=== PATIENT | male | born 1970 | race Two or more races ===

== ENCOUNTER 2016-06-14 19:55 | Emergency (ER) | payer OTHER ==
[~2016-06-14] VITALS: Ht 175.3 cm; Wt 81.6 kg
[2016-06-14 20:05] VITALS: BP_SYST 147
--- NOTE | 2016-06-14 20:05 | NUR ---
Patient to ER bed 06 to gown for evaluation. Side rails up. Report given to ESSIE.
--- NOTE | 2016-06-14 20:10 | NUR ---
Pt presents to ED with c/o R posterior lower back pain 12/22, started since noon, denies taking any pain medication prior to ED arrival. A&Ox4, Pt appearead anxious, diaphoretic, skin intact, ambulatory, denies dizziness, denies SOB or chestpain, denies N/V/D.Will continue to monitor
--- NOTE | 2016-06-14 20:20 | NUR ---
MD Chowdary at bedside examining pt
[2016-06-14] MEDS ORDERED: KETOROLAC TROMETHAMINE 30 MG VIAL IVP ONE (20:30)
[2016-06-14] MEDS ORDERED: HYDROmorphone 1 MG INJ. 1 MG/ML AMPUL IVP ONE (20:30)
[2016-06-14] MEDS ORDERED: NACL 0.9% 1,000 ML IV ONE (20:30)
[2016-06-14] MEDS ORDERED: DIPHENHYDRAMINE INJ 50 MG/ML VIAL IVP ONE (20:30)
[2016-06-14 20:39] LABS: BASOPHILS % (AUTO) 0.4 % (0.0-2.0); EOSINOPHILS # (AUTO) 0.1 K/uL (0.0-0.4); EOSINOPHILS % (AUTO) 1.8 % (0.0-4.0); HEMATOCRIT 42.1 % (36-54); HEMOGLOBIN 14.3 g/dL (14.0-18.0); LYMPHOCYTES # (AUTO) 2.7 K/uL (1.0-5.5); LYMPHOCYTES % (AUTO) 37.6 % (20.5-51.5); MEAN CORPUSCULAR HEMOGLOBIN 29 pg (27-31); MEAN CORPUSCULAR HGB CONC 34 % (32-36); MEAN CORPUSCULAR VOLUME 85 fL (79.0-98.0); MONOCYTES # (AUTO) 0.5 K/uL (0.0-1.0); MONOCYTES % (AUTO) 6.8 % (1.7-9.3); NEUTROPHILS # (AUTO) 3.9 K/uL (1.8-7.7); NEUTROPHILS % (AUTO) 53.4 % (40.0-70.0); PLATELET COUNT (AUTO) 225 K/uL (130-430); RED BLOOD CELL COUNT(AUTO) 4.94 MIL/uL (4.2-6.2); RED CELL DISTRIBUTION WIDTH 13.8 % (9.0-15.0); WHITE BLOOD COUNT (AUTO) 7.2 K/uL (4.8-10.8)
[2016-06-14 20:46] LABS: CALCIUM 8.5 mg/dL (8.4-11.0); CREATININE 1.15 mg/dL (0.55-1.30); POTASSIUM 3.6 mmol/L (3.5-5.1)
[2016-06-14 20:48] LABS: INR 0.9 (0.80-1.20); PROTHROMBIN TIME 10.3 SECS (9.5-12.5)
[2016-06-14 20:54] LABS: ALBUMIN 3.7 g/dL (3.4-4.8); TOTAL BILIRUBIN 0.2 mg/dL (0.0-1.0); TOTAL PROTEIN, SERUM 7.3 g/dL (6.4-8.3)
[2016-06-14 21:03] LABS: BILIRUBIN,URINE NEGATIVE (NEGATIVE); BLOOD, URINE NEGATIVE (NEGATIVE); CLARITY/URINE CLEAR (CLEAR); COLOR,URINE YELLOW (YELLOW); GLUCOSE,URINE NEGATIVE (NEGATIVE); KETONES,URINE NEGATIVE (NEGATIVE); LEUKOCYTE ESTERASE ,URINE NEGATIVE (NEGATIVE); NITRITE, URINE NEGATIVE (NEGATIVE); PROTEIN URINE NEGATIVE (NEGATIVE); UROBILINOGEN,URINE 0.2 (0.2-1.0)
--- NOTE | 2016-06-14 21:03 | NUR ---
pt appeared calm, stated pain is 3/10
--- NOTE | 2016-06-14 22:15 | NUR ---
Needs attended and care provided. Pt in bed appeared resting comfortably
[2016-06-14] MEDS ORDERED: PANTOPRAZOLE SODIUM 40 MG/VIAL (PROTONIX) IVP ONE (22:45)
--- NOTE | 2016-06-14 23:05 | NUR ---
Pt denies distress, Will continue to monitor
--- NOTE | 2016-06-15 | NUR ---
Patient given written and verbal discharge instructions and verbalizes understanding. ER MD Chowdary discussed with patient the results and treatment provided. Given copies of tests performed in ER. Patient in stable condition. ID arm band removed. IV catheter removed intact and dressing applied, no active bleeding. Rx of Jean, motrin given. Patient educated on pain management and to follow up with PMD. Pain Scale 0/10. Opportunity for questions provided and answered.
[2016-06-15 00:01] VITALS: BP_SYST 126
== END 2016-06-15 | disposition home or self-care (01) ==
LOC: SED 19:55
DX: K80.20 Calculus of gallbladder without cholecystitis without obstruction (principal); I25.2 Old myocardial infarction
CPT/HCPCS: 36415; 74176; 80053; 81003; 83690; 85025; 85610; 96361; 96374; 96375; 99285; C9113; J1170; J1200; J1885; J7030

== ENCOUNTER 2016-10-08 01:40 | Emergency (ER) | payer OTHER ==
[~2016-10-08] VITALS: Ht 175.3 cm; Wt 85.3 kg
--- NOTE | 2016-10-08 02:40 | NUR ---
Patient to ER bed 1 to gown for evaluation. Side rails up. Report given to Gibson ROBERT.
--- NOTE | 2016-10-08 02:45 | NUR ---
Patient arrived to ED a/o x 4 with c/o epigastric pain. Patient reports 7/10 epigastric pain radiating to the left side. Reports coming to ED 2 weeks ago. Discharged with gastritis. No relief from pain since then. Reports nausea. Denies vomiting. ABD guarding noted. No distention. Will continue to monitor.
--- NOTE | 2016-10-08 02:50 | NUR ---
ED MD Byrd at bedside for medical evaluation.
--- NOTE | 2016-10-08 03:28 | NUR ---
Medicated per MD orders.
[2016-10-08] MEDS ORDERED: KETOROLAC TROMETHAMINE 60 MG/2 ML VIAL IM ONE (03:30)
--- NOTE | 2016-10-08 03:30 | NUR ---
Patient transported off unit for ultrasound via wheelchair.
[2016-10-08 03:31] LABS: HEMOGLOBIN 13.8 g/dL (14.0-18.0); RED BLOOD CELL COUNT(AUTO) 4.87 MIL/uL (4.2-6.2); WHITE BLOOD COUNT (AUTO) 9.7 K/uL (4.8-10.8)
[2016-10-08 03:32] LABS: HEMATOCRIT 41.7 % (36-54); MEAN CORPUSCULAR HEMOGLOBIN 28 pg (27-31); MEAN CORPUSCULAR HGB CONC 33 % (32-36); MEAN CORPUSCULAR VOLUME 86 fL (79.0-98.0); PLATELET COUNT (AUTO) 185 K/uL (130-430); RED CELL DISTRIBUTION WIDTH 13.5 % (9.0-15.0)
[2016-10-08 03:37] LABS: ANION GAP 6 (5-15); CALCIUM 8.5 mg/dL (8.4-11.0); CHLORIDE 102 mmol/L (98-107); CREATININE 1.16 mg/dL (0.55-1.30); GFR AFRICAN AMERICAN 88 mL/min (>90); GLUCOSE 137 mg/dL (70-99); POTASSIUM 3.3 mmol/L (3.5-5.1); SODIUM SERUM 140 mmol/L (136-145); UREA NITROGEN, BLOOD 26 mg/dL (8-21)
[2016-10-08 03:42] LABS: PROTHROMBIN TIME 10.9 SECS (9.5-12.5)
[2016-10-08 03:45] LABS: ALANINE AMINOTRANSFERASE 26 U/L (12-78); ALBUMIN 3.6 g/dL (3.4-4.8); AMYLASE 44 U/L (0-100); ASPARTATE AMINOTRANSFERASE 15 U/L (10-37); LIPASE 88 U/L (73-393); TOTAL BILIRUBIN 0.5 mg/dL (0.0-1.0)
[2016-10-08 03:50] LABS: NEUTROPHILS % (AUTO) 83.6 % (40.0-70.0)
[2016-10-08 03:51] LABS: BASOPHILS # (AUTO) 0.1 K/uL (0.0-0.2); BASOPHILS % (AUTO) 0.6 % (0.0-2.0); EOSINOPHILS # (AUTO) 0.1 K/uL (0.0-0.4); EOSINOPHILS % (AUTO) 0.6 % (0.0-4.0); LYMPHOCYTES # (AUTO) 1.1 K/uL (1.0-5.5); LYMPHOCYTES % (AUTO) 11.3 % (20.5-51.5); MONOCYTES # (AUTO) 0.4 K/uL (0.0-1.0); MONOCYTES % (AUTO) 3.9 % (1.7-9.3)
--- NOTE | 2016-10-08 04:00 | NUR ---
ED MD Byrd at bedside reassessing patient.
[2016-10-08 04:15] VITALS: BP_SYST 139
--- NOTE | 2016-10-08 04:15 | NUR ---
Patient given written and verbal discharge instructions and verbalizes understanding. ER MD discussed with patient the results and treatment provided. Patient in stable condition. ID arm band removed. Rx of [place] given. Patient educated on pain management and to follow up with PMD. Pain Scale 2/10 tolerable for patient. Opportunity for questions provided and answered.
== END 2016-10-08 04:15 | disposition home or self-care (01) ==
LOC: SED 01:40
DX: K80.20 Calculus of gallbladder without cholecystitis without obstruction (principal); I25.2 Old myocardial infarction; Z87.891 Personal history of nicotine dependence
CPT/HCPCS: 36415; 76705; 80053; 82150; 83690; 84484; 85025; 85610; 93005; 96372; 99285; J1885

== ENCOUNTER 2021-05-25 12:21 | Emergency (ER) | payer OTHER ==
[~2021-05-25] VITALS: Ht 175.3 cm; Wt 97.5 kg
[2021-05-25 12:26] VITALS: BP_SYST 153
--- NOTE | 2021-05-25 12:26 | NUR ---
Patient to ER bed 6 to gown for evaluation. Side rails up.
--- NOTE | 2021-05-25 12:30 | NUR ---
ER DR. CUNHA AT THE BEDSIDE EXAMINING PT
--- NOTE | 2021-05-25 12:41 | NUR ---
PORTABLE X-RAY AT THE BEDSIDE
--- NOTE | 2021-05-25 13:20 | NUR ---
PT PROVIDED WITH OLE BANDAGE AND CRUTCHES PER MD ORDER.
--- NOTE | 2021-05-25 13:28 | NUR ---
Patient given written and verbal discharge instructions and verbalizes understanding. ER MD discussed with patient the results and treatment provided. Patient in stable condition. ID arm band removed. Rx of NORCO AND IBUPROFEN given. Patient educated on pain management and to follow up with PMD. Pain Scale 0/10. Opportunity for questions provided and answered. Medication side effect fact sheet provided.
== END 2021-05-25 13:28 | disposition home or self-care (01) ==
LOC: SED 12:21
DX: S96.911A Strain of unspecified muscle and tendon at ankle and foot level, right foot, initial encounter (principal); I25.2 Old myocardial infarction; X58.XXXA Exposure to other specified factors, initial encounter; Y93.01 Activity, walking, marching and hiking; Y92.89 Other specified places as the place of occurrence of the external cause; Y99.8 Other external cause status
CPT/HCPCS: 99284

== ENCOUNTER 2022-06-02 18:11 | Emergency (ER) | payer OTHER ==
[~2022-06-02] VITALS: Ht 175.3 cm; Wt 96.2 kg
[2022-06-02 19:03] VITALS: BP_SYST 150
--- NOTE | 2022-06-02 20:00 | NUR ---
Patient to ER bed day to gown for evaluation. Side rails up.
--- NOTE | 2022-06-02 20:10 | NUR ---
ER at bedside examining patient.
[2022-06-02] MEDS ORDERED: LIDOCAINE 1%, 20 ML MDV 20 ML ONE (20:11)
[2022-06-02] MEDS ORDERED: LIDOCAINE 1% 10 MG/ML, 20 ML MDV INJ ONE (20:15)
--- NOTE | 2022-06-02 20:50 | NUR ---
Patient has a 3 cm laceration to right index. Dr. Contreras applied sutures using sterile technique. Edges well approximated. Site cleansed with sterile water and betadine. Dressing of gauze applied to site. No bleeding noted. Pt tolerated well.
--- NOTE | 2022-06-02 21:15 | NUR ---
Patient given written and verbal discharge instructions and verbalizes understanding. ER MD discussed with patient the results and treatment provided. Patient in stable condition. ID arm band removed. no Rx of given. Patient educated on pain management and to follow up with PMD. Pain Scale 0/10. Opportunity for questions provided and answered. Medication side effect fact sheet provided.
[2022-06-02 21:16] VITALS: BP_SYST 142
== END 2022-06-02 21:16 | disposition home or self-care (01) ==
LOC: SED 18:11
DX: S61.211A Laceration without foreign body of left index finger without damage to nail, initial encounter (principal); Z79.899 Other long term (current) drug therapy; W26.8XXA Contact with other sharp object(s), not elsewhere classified, initial encounter; Y93.89 Activity, other specified; Y92.89 Other specified places as the place of occurrence of the external cause; Y99.8 Other external cause status
CPT/HCPCS: 99282; 12002; J2001

== ENCOUNTER 2023-08-04 13:09 | Emergency (ER) | payer OTHER ==
[~2023-08-04] VITALS: Ht 175.3 cm; Wt 93.4 kg
[2023-08-04 13:15] VITALS: BP_SYST 173; PULSE 81; RESP 18; TEMP 97.2; O2SAT 97
[2023-08-04] MEDS ORDERED: NEOM28.37 TP (13:49)
[2023-08-04] MEDS ORDERED: HYDR-3917 PO (13:49)
[2023-08-04] MEDS ORDERED: IBUP-1971 PO (13:49)
[2023-08-04] MEDS: SILVER SULFADIAZINE 1%, 25 GM TOPICAL CREAM (SSD) TP ONE (14:00)
[2023-08-04] MEDS: DIPHTH,PERTUSS(ACELL),TET VAC 0.5 ML VIAL (Tdap) I.M. ONE (14:00)
[2023-08-04 14:03] VITALS: BP_SYST 173; PULSE 81; RESP 18; TEMP 97.2; O2SAT 97
== END 2023-08-04 14:03 | disposition home or self-care (01) ==
LOC: SED 13:09
DX: T23.272A Burn of second degree of left wrist, initial encounter (principal); T20.10XA Burn of first degree of head, face, and neck, unspecified site, initial encounter; X08.8XXA Exposure to other specified smoke, fire and flames, initial encounter; Y93.89 Activity, other specified; Y92.89 Other specified places as the place of occurrence of the external cause; Y99.8 Other external cause status
CPT/HCPCS: 90715; 99283